=== PATIENT | male | born 1990 | race Caucasian/White ===

== ENCOUNTER 2020-08-07 16:33 | Emergency (ER) | payer MEDICAID ==
[~2020-08-07] VITALS: Ht 172.7 cm; Wt 180.0 kg
[2020-08-07 16:41] VITALS: BP 130/66
[2020-08-07] MEDS ORDERED: LORA-1000 PO (16:46)
[2020-08-07] MEDS ORDERED: ADDE10 PO (16:46)
[2020-08-07] MEDS ORDERED: HydrOXYzine PAMOATE 50 MG CAPSULE PO ONE (18:45)
== END 2020-08-07 19:23 | disposition home or self-care (01) ==
LOC: EMS 16:33
DX: F20.9 Schizophrenia, unspecified (principal)
CPT/HCPCS: 99284; Z7502; Z7610